=== PATIENT | male | born 1995 | race Caucasian/White ===

== ENCOUNTER 2017-11-29 10:52 | Emergency (ER) | payer OTHER ==
[2017-11-29] MEDS: NORMAL SALINE 1000 ML 1,000 ML IV PRN ×2 (11:25→12:23)
[2017-11-29 11:40] LABS: ABSOLUTE LYMPHOCYTES (AUTO) 1.6 10^3/uL (0.5-4.7); ABSOLUTE MONOCYTES (AUTO) 0.8 10^3/uL (0.1-1.4); ABSOLUTE NEUT (AUTO) 9.8 10^3/uL (1.7-8.2); BASOPHILS % (AUTO) 0.3 % (0-2); EOSINOPHILS % (AUTO) 0.3 % (0-6); HEMATOCRIT 42.8 % (37.9-51.0); HEMOGLOBIN 14.8 g/dL (13.5-17.0); LYMPHOCYTES % (AUTO) 12.9 % (13-45); MEAN CORPUSCULAR HEMOGLOBIN 30.1 pg (27.0-33.4); MEAN CORPUSCULAR HGB CONC 34.7 g/dL (32.0-36.0); MEAN CORPUSCULAR VOLUME 87 fl (80-97); MONOCYTES % (AUTO) 6.6 % (3-13); PLATELET COUNT 225 10^3/uL (150-450); RED BLOOD COUNT 4.93 10^6/uL (4.35-5.55); RED CELL DISTRIBUTION WIDTH 13.2 % (11.5-14.0); SEGMENTED NEUTROPHILS % (AUTO) 79.9 % (42-78); TOTAL CELLS COUNTED % (AUTO) 100 %; WHITE BLOOD COUNT 12.2 10^3/uL (4.0-10.5)
[2017-11-29 11:53] LABS: ANION GAP 18 (5-19); BLOOD UREA NITROGEN 24 mg/dL (7-20); CALCIUM 9.2 mg/dL (8.4-10.2); CARBON DIOXIDE 21 mmol/L (22-30); CHLORIDE 104 mmol/L (98-107); CREATINE KINASE 997 U/L (55-170); GLUCOSE 81 mg/dL (75-110); POTASSIUM 4.4 mmol/L (3.6-5.0); SODIUM 142.5 mmol/L (137-145)
[2017-11-29 11:59] LABS: ALCOHOL < 10 mg/dL (NONE DETECTED)
--- NOTE | 2017-11-29 12:36 | ER Document Report ---
ED General - General Chief Complaint: Heat Exposure Stated Complaint: POSSIBLE DEHYDRATION Time Seen by Provider: 11/29/17 11:09 TRAVEL OUTSIDE OF THE [place] IN LAST 30 DAYS: No - HPI Patient complains to provider of: Heat exposure Notes: Patient states when not kayaking and drink alcohol to try to drink water however continue to throw up very weak [employer] and brought to the ER for further evaluation. Upon evaluation patient states feeling better with her IV fluids. Denies any past medical history is also resolved at this time. Patient denies any fevers chills diarrhea. - Related Data Allergies/Adverse Reactions: No Known Allergies Allergy (Verified 11/29/17 10:53) Past Medical History - Social History Smoking Status: Never Smoker Chew tobacco use (# tins/day): No Frequency of alcohol use: Occasional Drug Abuse: None Family History: Reviewed & Not Pertinent Patient has suicidal ideation: No Patient has homicidal ideation: No Renal/ Medical History: Denies: Hx Peritoneal Dialysis Past Surgical History: Reports: Hx Orthopedic Surgery Review of Systems - Review of Systems Constitutional: Other - Heat exposure EENT: No symptoms reported Cardiovascular: No symptoms reported Respiratory: No symptoms reported Gastrointestinal: Vomiting Genitourinary: No symptoms reported Male Genitourinary: No symptoms reported Musculoskeletal: No symptoms reported Skin: No symptoms reported Hematologic/Lymphatic: No symptoms reported Neurological/Psychological: No symptoms reported Physical Exam - Vital signs Vitals: Temp Pulse Resp BP Pulse Ox 97.7 F 89 16 130/90 H 100 11/29/17 10:58 11/29/17 10:58 11/29/17 10:58 11/29/17 10:58 11/29/17 10:58 Interpretation: Normal - General General appearance: Appears well, Alert - HEENT Head: Normocephalic, Atraumatic Eyes: Normal Pupils: PERRL - Respiratory Respiratory status: No respiratory distress Chest status: Nontender Breath sounds: Normal Chest palpation: Normal - Cardiovascular Rhythm: Regular Heart sounds: Normal auscultation Murmur: No - Abdominal Inspection: Normal Distension: No distension Bowel sounds: Normal Tenderness: Nontender Organomegaly: No organomegaly - Back Back: Normal, Nontender - Extremities General upper extremity: Normal inspection, Nontender, Normal color, Normal ROM , Normal temperature General lower extremity: Normal inspection, Nontender, Normal color, Normal ROM , Normal temperature, Normal weight bearing. No: Wally's sign - Neurological Neuro grossly intact: Yes Cognition: Normal Orientation: AAOx4 [place] Coma Scale Eye Opening: Spontaneous [place] Coma Scale Verbal: Oriented [place] Coma Scale Motor: Obeys Commands [place] Coma Scale Total: 15 Speech: Normal Motor strength normal: LUE, RUE, LLE, RLE Sensory: Normal - Psychological Associated symptoms: Normal affect, Normal mood - Skin Skin Temperature: Warm Skin Moisture: Dry Skin Color: Normal Course - Re-evaluation Re-evalutation: 11/29/17 14:43 Laboratory studies that showed elevated CK and no signs of renal failure. Patient was given 2 L of fluid here currently is a systematic. Patient was educated about his exposure stating that he next 1224 hrs. and drinking clear fluids today hydrated. Patient will be discharged on follow-up primary care physician. - Vital Signs Vital signs: Temp Pulse Resp BP Pulse Ox 98.0 F 96 16 124/65 99 11/29/17 13:01 11/29/17 13:01 11/29/17 10:58 11/29/17 13:01 11/29/17 13:01 - Laboratory Result Diagrams: 11/29/17 11:20 11/29/17 11:20 Laboratory results interpreted by me: 11/29/17 11/29/17 11:20 11:20 WBC 12.2 H Seg Neutrophils % 79.9 H Lymphocytes % 12.9 L Absolute Neutrophils 9.8 H Carbon Dioxide 21 L BUN 24 H Creatine Kinase 997 H Discharge - Discharge Clinical Impression: Dehydration Heat exposure Qualifiers: Encounter type: initial encounter Qualified Code(s): T67.9XXA - Effect of heat and light, unspecified, initial encounter Disposition: HOME, SELF-CARE Instructions: Dehydration ([facility]), Heat Exhaustion ([facility]) Additional Instructions: Her studies today show signs of significant dehydration and heat exposure. Please make sure you are drinking plenty of fluids while out in [place]. Would recommend for the next 24-48 hours you for the excessive sun exposure and heat exposure. Please make sure drinking water fluids containing electrolytes such as Gatorade avoid alcohol and excessive caffeine use. Return to the ER symptoms worsen. Prescriptions: Ondansetron [Zofran Odt] 4 mg PO Q6 PRN #30 tab.rapdis PRN Reason: For Nausea/Vomiting Forms: Return to Work
[2017-11-29 13:08] VITALS: BP 124/65
== END 2017-11-29 13:13 | disposition home or self-care (01) ==
LOC: ER 10:52
DX: R11.10 Vomiting, unspecified (principal); E86.0 Dehydration; T67.9XXA Effect of heat and light, unspecified, initial encounter; X30.XXXA Exposure to excessive natural heat, initial encounter
CPT/HCPCS: 99284; 96360; 36415; 80307; 82550; 85025; 80048; J7030